=== PATIENT | female | born 1940 | race Caucasian/White ===

== ENCOUNTER 2018-09-10 10:02 | Inpatient (IN) | payer MEDICARE, MEDICAID ==
[2018-09-10 10:07] VITALS: BMI 24.8
[2018-09-10 13:10] LABS: SQUAMOUS EPITHIAL 1 /hpf (0-5); URINE BACTERIA RARE (<OCC); URINE BILIRUBIN NEGATIVE (NEGATIVE); URINE BLOOD NEGATIVE (NEGATIVE); URINE CLARITY Clear (Clear); URINE COLOR Yellow (YELLOW); URINE GLUCOSE (UA) 1+ mg/dL (Normal); URINE LEUKOCYTE ESTERASE TRACE Leu/uL (Negative); URINE PROTEIN 2+ mg/dL (NEGATIVE); URINE UROBILINOGEN NORMAL mg/dL (0.2-1.0)
--- NOTE | 2018-09-10 13:33 | C.PDOC ---
History Of Present Illness 78 years old female with PMHx of ESRD (on dialysis MWF) presents to ED for complaints of abdominal cramping associated with watery diarrhea that began 3 days ago. Patient reports diarrhea is associated occasionally with dark blood s treaks and reports some mucus. Denies chest pain, shortness of breath, vomiting, cough, or fever. Patient also states she did not feel well today so she did not go to dialysis. PMD: * Josué Sweet Investment Banker: * Dr. Lafleur Time Seen by Provider: 09/10/18 10:29 Chief Complaint (Nursing): GI Problem History Per: Patient History/Exam Limitations: no limitations Onset/Duration Of Symptoms: Days Current Symptoms Are (Timing): Still Present Radiation Of Pain To:: None Quality Of Discomfort: Cramping Associated Symptoms: Diarrhea. denies: Fever, Chills, Nausea Exacerbating Factors: None Alleviating Factors: None Last Bowel Movement: Today Recent travel outside of the [place]: No Past Medical History Reviewed: Historical Data, Nursing Documentation, Vital Signs Vital Signs: Last Vital Signs Temp 97.8 F 09/10/18 10:17 Pulse 83 09/10/18 10:17 Resp 17 09/10/18 10:17 BP 189/81 H 09/10/18 10:17 Pulse Ox 97 09/10/18 10:17 - Medical History PMH: Anemia, Arthritis (JOINTS HURT), HTN, Hypothyroidism, Chronic Kidney Disease Surgical History: Endoscopy - [facility] Procedures BYPASS LEFT RADIAL ARTERY TO LOWER ARM VEIN, OPEN APPROACH (07/22/15) CATARAC PHACOEMULS/ASPIR (02/22/05) FLUOROSCOPY OF SUP VENA CAVA USING L OSM CONTRAST, GUIDANCE (07/22/15) INSERT INFUSION DEV IN R INT JUGULAR VEIN, PERC (07/22/15) INSERT LENS AT CATAR EXT (02/22/05) INSERTION OF INFUSION DEV INTO SUP VENA CAVA, PERC APPROACH (07/22/15) PERFORMANCE OF URINARY FILTRATION, MULTIPLE (07/22/15) PERFORMANCE OF URINARY FILTRATION, SINGLE (10/11/15) TRANSFUSE NONAUT RED BLOOD CELLS IN PERIPH VEIN, PERC (07/22/15) Family History: States: Unknown Family Hx - Social History Hx Tobacco Use: No Hx Alcohol Use: No Hx Substance Use: No - Immunization History Hx Tetanus Toxoid Vaccination: No Hx Influenza Vaccination: Yes Hx Pneumococcal Vaccination: Yes Review Of Systems Constitutional: Negative for: Fever, Chills Gastrointestinal: Positive for: Abdominal Pain, Diarrhea. Negative for: Nausea, Vomiting Skin: Negative for: Rash Neurological: Negative for: Weakness, Numbness Physical Exam - Physical Exam Appears: Non-toxic, Other (Uncomfortable ) Skin: Normal Color, Warm, Dry, No Rash Head: Atraumatic, Normacephalic Eye(s): bilateral: Normal Inspection, PERRL, EOMI Oral Mucosa: Moist Neck: Normal ROM, Supple Chest: Symmetrical, No Tenderness Cardiovascular: Rhythm Regular, No Murmur Respiratory: Normal Breath Sounds, No Rales, No Rhonchi, No Wheezing Gastrointestinal/Abdominal: Soft, Tenderness (Left periumbillical and lower quadrant ), No Guarding, No Rebound, Other (Negative eldridge's and mcburny's. ) Back: Normal Inspection, No CVA Tenderness Extremity: Normal ROM Extremity: Bilateral: Atraumatic, Normal Color And Temperature, Normal ROM Pulses: Left Radial: Normal, Right Radial: Normal Neurological/Psych: Oriented x3, Normal Speech Gait: Steady ED Course And Treatment - Laboratory Results Result Diagrams: 09/10/18 15:01 09/10/18 15:01 O2 Sat by Pulse Oximetry: 97 (RA) Pulse Ox Interpretation: Normal - CT Scan/US CT ABD/PELVIS Other Rad Studies (CT/US): Read By Radiologist, Radiology Report Reviewed CT/US Interpretation: Accession No. : Patient Name / ID : RA ESTEVEZ O / [id number]. Exam Date : 09/10/2018 12:36:57 ( Approved ). Study Comment : Sex / Age : F / [id number]. Creator : Beatriz Mandujano. Dictator : Cal Wray MD. Backup Operator : Ticket Collector : Cal Wray MD. Approver2 : Report Date : 09/10/2018 12:49:30. My Comment : . Date of service: 2018-09-10 12:36:57. PROCEDURE: CT Abdomen and Pelvis without intravenous contrast. HISTORY: Left-sided abdominal pain. COMPARISON: None. TECHNIQUE: Without contrast.. Contrast dose: 0. Radiation dose: Total exam DLP = 218.06 mGy-cm. This CT exam was performed using one or more of the following dose reduction techniques: Automated exposure control, adjustment of the mA and/or kV according to patient size, and/or use of iterative reconstruction technique. FINDINGS: LOWER THORAX: No infiltrate. Pleural thickening versus subsegmental atelectasis in left lower lobe adjacent to left heart border. Mild cardiomegaly. Coronary arterial calcification. Elevated right hemidiaphragm. Differential diagnosis would include eventration of the diaphragm, hernia, diaphragmatic paralysis. LIVER: Unremarkable. No gross lesion or ductal dilatation. GALLBLADDER AND BILE DUCTS: Gallbladder is s ignificant for mild stranding of the pericholecystic fat. No mani pericholecystic fluid. No calcified gallstones. If clinically warranted consider further evaluation with ultrasound examination. PANCREAS: Unremarkable. No gross lesion or ductal dilatation. SPLEEN: Unremarkable. ADRENALS: Unre markable. No mass. KIDNEYS AND URETERS: Bilateral multiple small rounded low- attenuation masses likely cysts. All are low in attenuation and likely represent cysts. No renal calculus. No hydronephrosis. VASCULATURE: Unremarkable. No aortic aneurysm. Atherosclerotic calcification of the aorta and iliac vessels. BOWEL: Sigmoid diverticulosis. Mural thickening of the sigmoid colon most likely due to chronic muscularis hypertrophy. No evidence of diverticulitis. No other abnormal bowel loops no bowel obstruction. APPENDIX: Unremarkable. Normal appendix. PERITONEUM: Unremarkable. No free fluid. No free air. LYMPH NODES: Unremarkable. No enlarged lymph nodes. BLADDER: Decompressed. REPRODUCTIVE: Normal postmenopausal uterus. BONES: No acute fracture. OTHER FINDINGS: None. IMPRESSION: Mild stranding of the pericholecystic fat common nonspecific. Consider further evaluation with ultrasound examination. Sigmoid diverticulosis without evidence of diverticulitis. Multiple bilateral renal cysts no bowel obstruction. Incidentally noted elevated right hemidiaphragm. See above. No other significant abnormality Progress Note: Administered Insulin and IV fluids. Ordered EKG, blood work, and urinalysis. Disposition - Disposition Forms: Diagnose.me (Khmer) - Scribe Statement The provider has reviewed the documentation as recorded by the Giovanny Cmap All medical record entries made by the Giovanny were at my direction and perso mike dictated by me. I have reviewed the chart and agree that the record accurately reflects my personal performance of the history, physical exam, medical decision making, and the department course for this patient. I have also personally directed, reviewed, and agree with the discharge instructions and disposition.
[2018-09-10 15:15] LABS: BASO % 0.2 % (0.0-2.0); EOS # 0.3 K/uL (0.0-0.7); EOS % 3.4 % (0.0-4.0); HEMOGLOBIN 13.1 g/dL (11.0-16.0); LYMPH # 0.7 K/uL (1.0-4.3); LYMPH % 9.1 % (20.0-40.0); MEAN CORPUSCULAR HEMOGLOBIN 29.9 pg (27.0-31.0); MEAN CORPUSCULAR HGB CONC 33.2 g/dL (33.0-37.0); MEAN PLATELET VOLUME 7.1 fL (7.2-11.7); MONO # 0.5 K/uL (0.0-0.8); MONO % 6.6 % (0.0-10.0); NEUT # 6.1 K/uL (1.8-7.0); NEUT % 80.7 % (50.0-75.0); PLATELET COUNT 185 K/uL (130-400); RBC 4.36 Mil/uL (3.80-5.20); RED CELL DISTRIBUTION WIDTH 17.9 % (11.5-14.5); WHITE BLOOD COUNT 7.5 K/uL (4.8-10.8)
[2018-09-10 15:20] LABS: ALB/GLOB RATIO 1.5 (1.0-2.1); ALBUMIN 4.8 g/dL (3.5-5.0); CALCIUM 8.8 mg/dl (8.6-10.4)
[2018-09-10] MEDS ORDERED: Calcium Gluconate 4.65 MEQ in Dextrose 5% In Water 100 ML IV ONE ×2 (15:31→17:00)
[2018-09-10] MEDS ORDERED: (Novolin R) Insulin Human Regular 100 units/ml vial IVP ONE (15:32)
[2018-09-10] MEDS ORDERED: Dextrose 50% SYRINGE Inj (50 ml) IVP STA (15:33)
[2018-09-10] MEDS ORDERED: Sodium Bicarbonate (8.4%) 50 Meq Syringe IVP ONE (15:33)
[2018-09-10 15:37] LABS: EOSINOPHIL 2 % (0-4); LYMPHOCYTE 5 % (20-40); MONOCYTE 10 % (0-10); NEUTROPHIL 83 % (50-75); PLATELET ESTIMATE NORMAL (NORMAL); TOTAL CELLS COUNTED 100
[2018-09-10] MEDS ORDERED: (Novolin R) Insulin Human Regular 100 units/ml vial ONE (15:44)
[2018-09-10] MEDS ORDERED: Dextrose 50% SYRINGE Inj (50 ml) ONE (15:44)
[2018-09-10] MEDS ORDERED: Sodium Bicarbonate (8.4%) 50 Meq Syringe ONE (15:44)
--- NOTE | 2018-09-10 16:08 | CT ---
Date of service: 2018-09-10 12:36:57 PROCEDURE: CT Abdomen and Pelvis without intravenous contrast HISTORY: Left-sided abdominal pain COMPARISON: None. TECHNIQUE: Without contrast.. Contrast dose: 0 Radiation dose: Total exam DLP = 218.06 mGy-cm. This CT exam was performed using one or more of the following dose reduction techniques: Automated exposure control, adjustment of the mA and/or kV according to patient size, and/or use of iterative reconstruction technique. FINDINGS: LOWER THORAX: No infiltrate. Pleural thickening versus subsegmental atelectasis in left lower lobe adjacent to left heart border. Mild cardiomegaly. Coronary arterial calcification. Elevated right hemidiaphragm. Differential diagnosis would include eventration of the diaphragm, hernia, diaphragmatic paralysis. LIVER: Unremarkable. No gross lesion or ductal dilatation. GALLBLADDER AND BILE DUCTS: Gallbladder is significant for mild stranding of the pericholecystic fat. No mani pericholecystic fluid. No calcified gallstones. If clinically warranted consider further evaluation with ultrasound examination. PANCREAS: Unremarkable. No gross lesion or ductal dilatation. SPLEEN: Unremarkable. ADRENALS: Unremarkable. No mass. KIDNEYS AND URETERS: Bilateral multiple small rounded low-attenuation masses likely cysts. All are low in attenuation and likely represent cysts. No renal calculus. No hydronephrosis. VASCULATURE: Unremarkable. No aortic aneurysm. Atherosclerotic calcification of the aorta and iliac vessels. BOWEL: Sigmoid diverticulosis. Mural thickening of the sigmoid colon most likely due to chronic muscularis hypertrophy. No evidence of diverticulitis. No other abnormal bowel loops no bowel obstruction. APPENDIX: Unremarkable. Normal appendix. PERITONEUM: Unremarkable. No free fluid. No free air. LYMPH NODES: Unremarkable. No enlarged lymph nodes. BLADDER: Decompressed REPRODUCTIVE: Normal postmenopausal uterus. BONES: No acute fracture. OTHER FINDINGS: None. IMPRESSION: Mild stranding of the pericholecystic fat common nonspecific. Consider further evaluation with ultrasound examination. Sigmoid diverticulosis without evidence of diverticulitis. Multiple bilateral renal cysts no bowel obstruction. Incidentally noted elevated right hemidiaphragm. See above. No other significant abnormality
[2018-09-10] MEDS: Bismuth Subsalicylate 262 mg/15 ml Sus (240 ml) PO SCH (23:12)
[2018-09-11] MEDS: Levothyroxine 75 MCG TAB PO SCH (06:22)
[2018-09-11] MEDS ORDERED: LEVOTHYROXINE SODIUM 0.3 MG PO SCH (06:30)
[2018-09-11] MEDS ORDERED: Paricalcitol 2 mcg/ml Inj IV SCH (10:00)
[2018-09-11] MEDS: Bismuth Subsalicylate 262 mg/15 ml Sus (240 ml) PO SCH (10:42)
[2018-09-11] MEDS: Bismuth Subsalicylate 262 mg Chew Tab PO SCH ×3 (14:26→21:55)
[2018-09-11 15:22] LABS: ALB/GLOB RATIO 1.4 (1.0-2.1); ALBUMIN 4.2 g/dL (3.5-5.0); CALCIUM 8.6 mg/dl (8.6-10.4)
--- NOTE | 2018-09-11 17:55 | CP.PCM.HP ---
History of Present Illness - History of Present Illness History of Present Illness: CC: abdominal pain HPI: 78 y/o female h/o renal failure c/o abdominal pain. on and off, moderate in intensity . Also c/o diarrhea . No fever. NO SOB> No chestpain. Present on Admission - Present on Admission Any Indicators Present on Admission: Yes History of DVT/PE: No History of Uncontrolled Diabetes: No Urinary Catheter: No Decubitus Ulcer Present: No Review of Systems - Review of Systems All systems: reviewed and no additional remarkable complaints except (fatigue, appetite good, no fever, no constipation) Past Patient History - Infectious Disease Hx of Infectious Diseases: None - Tetanus Immunizations Tetanus Immunization: Unknown - Past Medical History & Family History Past Medical History?: Yes - Past Social History Smoking Status: Never Smoked Chewing Tobacco Use: No Cigar Use: No Alcohol: None Drugs: Denies Home Situation {Lives}: With Family Domestic Violence: Negative - CARDIAC Hx Cardiac Disorders: Yes Hx Hypertension: Yes - PULMONARY Hx Respiratory Disorders: No - NEUROLOGICAL Hx Neurological Disorder: No - HEENT Hx HEENT Problems: Yes (GLASSES READING) Hx Cataracts: Yes (s/p surgery 2004) - RENAL Hx Chronic Kidney Disease: Yes Date of Last Dialysis Treatment: 09/07/18 - ENDOCRINE/METABOLIC Hx Endocrine Disorders: Yes Hx Hypothyroidism: Yes - HEMATOLOGICAL/ONCOLOGICAL Hx Blood Disorders: Yes Hx Anemia: Yes - INTEGUMENTARY Hx Dermatological Problems: No - MUSCULOSKELETAL/RHEUMATOLOGICAL Hx Musculoskeletal Disorders: Yes Hx Arthritis: Yes (JOINTS HURT) Hx Falls: No - GASTROINTESTINAL Hx Gastrointestinal Disorders: No - GENITOURINARY/GYNECOLOGICAL Hx Genitourinary Disorders: No - PSYCHIATRIC Hx Substance Use: No - SURGICAL HISTORY Hx Surgeries: Yes Hx Cataract Extraction: Yes Hx Vascular Surgery: Yes (LEFT WRIST/ LEFT AXILLA FOR DIALYSIS/NON FUNCTIONING) Hx Vascular Access Device: Yes (LEFT UPPER ARM AV FISTULA) - ANESTHESIA Hx Anesthesia: Yes Hx Anesthesia Reactions: No Hx Malignant Hyperthermia: No Meds Allergies/Adverse Reactions: Allergies Allergy/AdvReac Type Severity Reaction Status Date / Time codeine Allergy Intermediate ITCHING Verified 09/10/18 10:33 Physical Exam - Constitutional Appears: Chronically Ill - Head Exam Head Exam: NORMAL INSPECTION - Eye Exam Eye Exam: Normal appearance Pupil Exam: NORMAL ACCOMODATION - ENT Exam ENT Exam: Normal Exam - Neck Exam Neck exam: Positive for: Normal Inspection - Respiratory Exam Respiratory Exam: NORMAL BREATHING PATTERN - Cardiovascular Exam Cardiovascular Exam: REGULAR RHYTHM - GI/Abdominal Exam GI & Abdominal Exam: Soft - Rectal Exam Rectal Exam: Deferred - Extremities Exam Extremities exam: Positive for: normal inspection Results - Vital Signs Recent Vital Signs: Last Vital Signs Temp 98.6 F 09/11/18 15:00 Pulse 70 09/11/18 15:00 Resp 20 09/11/18 15:00 BP 160/60 H 09/11/18 15:00 Pulse Ox 96 09/11/18 15:00 - Labs Result Diagrams: 09/12/18 11:53 09/12/18 11:53 Labs: Laboratory Results - last 24 hr 09/10/18 09/11/18 09/11/18 15:01 13:49 13:49 Sodium 128 L Potassium 6.1 H Chloride 88 L Carbon Dioxide 23 Anion Gap 23 H BUN 129 H* Creatinine 10.7 H* Est GFR ( Amer) 4 Est GFR (Non-Af Amer) 3 Random Glucose 125 H Calcium 8.6 Total Bilirubin 0.7 AST 32 ALT 26 Alkaline Phosphatase 72 Total Protein 7.1 Albumin 4.2 Globulin 2.9 Albumin/Globulin Ratio 1.4 Lipase 308 H C. difficile Ag & Toxin Negative Assessment & Plan (1) Abdominal pain Status: Acute (2) HTN (hypertension) Status: Chronic (3) ESRD (end stage renal disease) on dialysis Status: Chronic - Assessment and Plan (Free Text) Assessment: A?P: CT abdomen sigmoid diverticulosis, multiple renal cyst noted. Feels elida. Dialysis done . Start with regular diet
--- NOTE | 2018-09-11 18:16 | CP.PCM.CON ---
History of Present Illness - History of Present Illness History of Present Illness: full consult is dictated , seen in hd this evening#[id number] Past Patient History - Infectious Disease Hx of Infectious Diseases: None - Tetanus Immunizations Tetanus Immunization: Unknown - Past Medical History & Family History Past Medical History?: Yes - Past Social History Smoking Status: Never Smoked Chewing Tobacco Use: No Cigar Use: No Alcohol: None Drugs: Denies Home Situation {Lives}: With Family Domestic Violence: Negative - CARDIAC Hx Cardiac Disorders: Yes Hx Hypertension: Yes - PULMONARY Hx Respiratory Disorders: No - NEUROLOGICAL Hx Neurological Disorder: No - HEENT Hx HEENT Problems: Yes (GLASSES READING) Hx Cataracts: Yes (s/p surgery 2004) - RENAL Hx Chronic Kidney Disease: Yes Date of Last Dialysis Treatment: 09/07/18 - ENDOCRINE/METABOLIC Hx Endocrine Disorders: Yes Hx Hypothyroidism: Yes - HEMATOLOGICAL/ONCOLOGICAL Hx Blood Disorders: Yes Hx Anemia: Yes - INTEGUMENTARY Hx Dermatological Problems: No - MUSCULOSKELETAL/RHEUMATOLOGICAL Hx Musculoskeletal Disorders: Yes Hx Arthritis: Yes (JOINTS HURT) Hx Falls: No - GASTROINTESTINAL Hx Gastrointestinal Disorders: No - GENITOURINARY/GYNECOLOGICAL Hx Genitourinary Disorders: No - PSYCHIATRIC Hx Substance Use: No - SURGICAL HISTORY Hx Surgeries: Yes Hx Cataract Extraction: Yes Hx Vascular Surgery: Yes (LEFT WRIST/ LEFT AXILLA FOR DIALYSIS/NON FUNCTIONING) Hx Vascular Access Device: Yes (LEFT UPPER ARM AV FISTULA) - ANESTHESIA Hx Anesthesia: Yes Hx Anesthesia Reactions: No Hx Malignant Hyperthermia: No Meds Allergies/Adverse Reactions: Allergies Allergy/AdvReac Type Severity Reaction Status Date / Time codeine Allergy Intermediate ITCHING Verified 09/10/18 10:33 - Medications Medications: Current Medications Amlodipine Besylate (Norvasc) 10 mg PO DAILY [facility] Last Admin: 09/11/18 10:02 Dose: 10 mg Bismuth Subsalicylate (Pepto Bismol) 262 mg PO QID [facility] Last Admin: 09/11/18 18:02 Dose: Not Given Carvedilol (Coreg) 25 mg PO BID [facility] Last Admin: 09/11/18 18:02 Dose: Not Given Heparin Sodium (Porcine) (Heparin) 5,000 units SC Q12 [facility] Last Admin: 09/11/18 10:05 Dose: Not Given Levothyroxine Sodium (Synthroid) 75 mcg PO DAILY@0630 [facility] Last Admin: 09/11/18 06:22 Dose: 75 mcg Paricalcitol (Zemplar) 2 mcg IV TTS [place] Pneumococcal Polyvalent Vaccine (Pneumovax 23 Vaccine) 0.5 ml IM .ONCE ONE Stop: 09/12/18 10:03 Results - Vital Signs Recent Vital Signs: Last Vital Signs Temp 98.6 F 09/11/18 15:00 Pulse 70 09/11/18 15:00 Resp 20 09/11/18 15:00 BP 160/60 H 09/11/18 15:00 Pulse Ox 96 09/11/18 15:00 - Labs Result Diagrams: 09/10/18 15:01 09/11/18 13:49 Labs: Laboratory Results - last 24 hr 09/10/18 09/11/18 09/11/18 15:01 13:49 13:49 Sodium 128 L Potassium 6.1 H Chloride 88 L Carbon Dioxide 23 Anion Gap 23 H BUN 129 H* Creatinine 10.7 H* Est GFR ( Amer) 4 Est GFR (Non-Af Amer) 3 Random Glucose 125 H Calcium 8.6 Total Bilirubin 0.7 AST 32 ALT 26 Alkaline Phosphatase 72 Total Protein 7.1 Albumin 4.2 Globulin 2.9 Albumin/Globulin Ratio 1.4 Lipase 308 H C. difficile Ag & Toxin Negative
--- NOTE | 2018-09-12 04:26 | CON ---
DATE: 09/11/2018 RENAL CONSULTATION LOCATION: The patient is located in room 565, bed B. REQUESTED BY: Josué Barbosa MD REASON FOR CONSULTATION: End-stage renal disease, hyperkalemia, and for continuation of hemodialysis. HISTORY OF PRESENT ILLNESS: Mrs. Estrella is a 78-year-old elderly very pleasant German female with a past medical history significant for longstanding hypertension; end-stage renal disease; on hemodialysis three times a week on Saturday, Saturday and Saturday who was admitted with chief complaints of diarrhea for about three days associated with some mucus and streaks of blood and also abdominal discomfort. The patient also complains of cough associated with yellow sputum for few days. Denies any chest pain or palpitation. Denies any fever or cough. Denies any nausea or vomiting. Denies any dysuria or frequency. Denies any swelling of the legs. Denies any recent weight loss or weight gain. PAST MEDICAL HISTORY: Significant for longstanding hypertension; end-stage renal disease, on hemodialysis three times a week. PAST SURGICAL HISTORY: Status post left upper extremity AV fistula. SOCIAL HISTORY: No smoking. No alcohol. No drugs. PERSONAL HISTORY: She is and she has four children. FAMILY HISTORY: Not significant. MEDICATIONS: Her current medications include as follows: Amlodipine 10 mg daily, Nephro-Ruba, Renvela, pravastatin, metoprolol, levothyroxine, and esomeprazole. Her current medications in the hospital include Coreg, subcu heparin, amlodipine, Pepto-Bismol, levothyroxine, and Zemplar. REVIEW OF THE SYSTEMS: Significant for diarrhea and cough associated with yellow sputum. All other review of systems reviewed and negative. PHYSICAL EXAMINATION: VITAL SIGNS: As follows: Blood pressure 163/75, pulse 70, respirations about 16, temperature 96.5, and saturation 96%. Height 5 feet. Weight is 110 pounds. GENERAL: Mrs. Estrella is a 78-year-old very pleasant elderly German female, moderately built, moderately nourished, not in acute distress. HEENT: Pupils normal and reactive to light and accommodation. Conjunctivae pink. Sclerae anicteric. Tongue is moist. Trachea is midline. LUNGS: Symmetric on both sides. Bilateral breath sounds present. Clear to auscultation. CARDIOVASCULAR SYSTEM: [place] at the fifth intercostal space, midclavicular line. S1 and S2 audible. No murmur or gallop. ABDOMEN: Normal in appearance, soft, and tympanitic. No guarding. No rigidity. No hepatosplenomegaly. CENTRAL NERVOUS SYSTEM: The patient is alert, awake, and oriented x3. Nonfocal neuro examination. Cranial nerves II through XII grossly intact. Sensory and motor system is within normal limits. EXTREMITIES: No cyanosis, no clubbing, no edema. LABORATORY DATA: Include as follows: As of 09/10/2018: WBC 7.5, hemoglobin 13.1, hematocrit is 39.3, and platelet 185. Sodium 130, potassium 5.7, chloride 89, CO2 of 23, BUN 113, creatinine 9.6, glucose is 147, calcium 8.8. Total bili 0.7, AST 41, ALT 26, alkaline phosphatase 87, total protein 8.1, albumin is 4.8, and lipase is 308. Urinalysis: Yellow, clear, pH of 8, specific gravity 1.009, protein 2+, glucose 1+, ketone negative, blood negative, nitrite negative, bilirubin negative, urobilinogen normal, leukocyte esterase trace, wbc's 4, rbc less than 1. Stool for C. difficile toxin is negative. Hepatitis B surface antigen is negative. As of 09/11/2018, other laboratory data: Sodium 128, potassium 6.1, chloride 88, CO2 of 23, BUN 129, creatinine 10.7, glucose 125, and calcium 8.6. Total bili 0.7, total protein 7.1, albumin is 4.2. ASSESSMENT AND PLAN: In summary, Mrs. Estrella is a [id number] [place] female with a history of hypertension and end-stage renal disease who was admitted with cough associated with some yellow sputum, abdominal discomfort and diarrhea for two to three days associated with some mucus and streaks of blood. Status post CT scan of the abdomen and pelvis consistent with mild stranding of pericholecystic fat, nonspecific. Considered further evaluation with ultrasound examination, sigmoid diverticulosis without evidence of diverticulitis, multiple bilateral renal cysts. No bowel obstruction. Incidentally noted elevated right hemidiaphragm. No other significant abnormality. 1. End-stage renal disease. Continue hemodialysis three times a week. 2. Hyperkalemia. 3. Hypertension. 4. Diarrhea, rule out food poisoning, rule out bacterial infection, rule out viral infection. The patient is being dialyzed this evening. Ultrafiltration goal is about 2 liters. The patient is being dialyzed with 2K+ bath Repeat basic metabolic panel in a.m. Continue her current medications. Check stool for ova and parasites and stool for white blood cells. Check sputum for Gram's stain, culture and sensitivity. We will follow with you. Thank you for allowing me to participate in your patient's care. Cecy Lafleur MD [facility]
[2018-09-12] MEDS: Levothyroxine 75 MCG TAB PO SCH (06:27)
--- NOTE | 2018-09-12 07:44 | CP.PCM.PN ---
Subjective - Date & Time of Evaluation Date of Evaluation: 09/12/18 Time of Evaluation: 07:40 - Subjective Subjective: Pt hungry; no more diarrhea and HD yesterday No CP, no SOB, no cough, no n/v Objective - Vital Signs/Intake and Output Vital Signs (last 24 hours): Temp Pulse Resp BP Pulse Ox 98.2 F 93 H 20 133/60 94 L 09/11/18 23:00 09/12/18 00:00 09/11/18 23:00 09/11/18 23:00 09/11/18 23:00 Intake and Output: 09/12/18 09/12/18 06:59 18:59 Intake Total 120 Balance 120 - Medications Medications: Current Medications Amlodipine Besylate (Norvasc) 10 mg PO DAILY [facility] Last Admin: 09/11/18 10:02 Dose: 10 mg Bismuth Subsalicylate (Pepto Bismol) 262 mg PO QID [facility] Last Admin: 09/11/18 21:55 Dose: 262 mg Carvedilol (Coreg) 25 mg PO BID [facility] Last Admin: 09/11/18 18:02 Dose: Not Given Heparin Sodium (Porcine) (Heparin) 5,000 units SC Q12 [facility] Last Admin: 09/11/18 21:55 Dose: 5,000 units Levothyroxine Sodium (Synthroid) 75 mcg PO DAILY@0630 [facility] Last Admin: 09/12/18 06:27 Dose: 75 mcg Paricalcitol (Zemplar) 2 mcg IV TTS [facility] Last Admin: 09/11/18 20:33 Dose: 2 mcg Pneumococcal Polyvalent Vaccine (Pneumovax 23 Vaccine) 0.5 ml IM .ONCE ONE Stop: 09/12/18 10:03 - Labs Labs: 09/10/18 15:01 09/11/18 13:49 - Constitutional Appears: No Acute Distress - Eye Exam Eye Exam: Normal appearance - ENT Exam ENT Exam: Mucous Membranes Moist - Neck Exam Neck Exam: Full ROM. absent: Normal Inspection - Respiratory Exam Respiratory Exam: Clear to Ausculation Bilateral. absent: Rales, Rhonchi, Wheezes - Cardiovascular Exam Cardiovascular Exam: REGULAR RHYTHM, +S1, +S2, Murmur. absent: Gallop, JVD - GI/Abdominal Exam GI & Abdominal Exam: Soft, Normal Bowel Sounds. absent: Guarding, Tenderness - Extremities Exam Extremities Exam: Full ROM, Normal Capillary Refill. absent: Calf Tenderness, Joint Swelling, Pedal Edema - Skin Skin Exam: Dry. absent: Erythema, Petechiae, Rash Assessment and Plan - Assessment and Plan (Free Text) Assessment: Diarrhea - viral; ESRD HTN, hypothyroidism For discharge today Cont OPD meds
[2018-09-12 07:47] VITALS: O2SAT 95
[2018-09-12] MEDS ORDERED: Pneumococcal 23-Valent Vaccine IM ONE (10:02)
[2018-09-12] MEDS: Bismuth Subsalicylate 262 mg Chew Tab PO SCH ×3 (10:50→17:51)
[2018-09-12 12:06] LABS: BASO % 0.5 % (0.0-2.0); EOS # 0.1 K/uL (0.0-0.7); EOS % 1.8 % (0.0-4.0); HEMOGLOBIN 12.2 g/dL (11.0-16.0); LYMPH # 0.6 K/uL (1.0-4.3); LYMPH % 8.3 % (20.0-40.0); MEAN CORPUSCULAR HEMOGLOBIN 30.6 pg (27.0-31.0); MEAN CORPUSCULAR HGB CONC 33.9 g/dL (33.0-37.0); MEAN PLATELET VOLUME 7.1 fL (7.2-11.7); MONO # 0.5 K/uL (0.0-0.8); MONO % 7.4 % (0.0-10.0); NEUT # 5.5 K/uL (1.8-7.0); PLATELET COUNT 169 K/uL (130-400); RBC 3.99 Mil/uL (3.80-5.20); RED CELL DISTRIBUTION WIDTH 17.4 % (11.5-14.5); WHITE BLOOD COUNT 6.7 K/uL (4.8-10.8)
[2018-09-12 12:27] LABS: ALB/GLOB RATIO 1.4 (1.0-2.1); ALBUMIN 4.1 g/dL (3.5-5.0); CALCIUM 8.2 mg/dl (8.6-10.4)
[2018-09-12 12:46] LABS: EOSINOPHIL 2 % (0-4); LYMPHOCYTE 6 % (20-40); PLATELET ESTIMATE NORMAL (NORMAL); TOTAL CELLS COUNTED 100
[2018-09-12 12:47] LABS: MONOCYTE 2 % (0-10); NEUTROPHIL 90 % (50-75)
[2018-09-12] MEDS ORDERED: Paricalcitol 2 mcg/ml Inj IV ONE (15:00)
[2018-09-12] MEDS ORDERED: Paricalcitol 2 mcg/ml Inj IV SCH (16:45)
[2018-09-12 17:32] VITALS: PULSE 86; RESP 18; TEMP 97.7
[2018-09-12 18:18] VITALS: BP 166/77
--- NOTE | 2018-09-12 18:38 | CP.PCM.PN ---
Subjective - Date & Time of Evaluation Date of Evaluation: 09/12/18 Time of Evaluation: 17:05 - Subjective Subjective: pt is seen and examined, follow up consult is dictated#[id number] hd this after noon to keep her out pt hd schedule MWF stable hd tx, uf goal is a 1lit Objective - Vital Signs/Intake and Output Vital Signs (last 24 hours): Temp Pulse Resp BP Pulse Ox 97.7 F 86 18 152/62 H 95 09/12/18 17:31 09/12/18 17:31 09/12/18 17:31 09/12/18 17:51 09/12/18 17:31 Intake and Output: 09/12/18 09/12/18 06:59 18:59 Intake Total 120 Balance 120 - Labs Labs: 09/12/18 11:53 09/12/18 11:53
--- NOTE | 2018-09-13 03:38 | PN ---
DATE: 09/12/2018 FOLLOWUP RENAL CONSULTATION LOCATION: The patient is located in room 565, bed B. REQUESTED BY: Josué Barbosa MD REASON FOR FOLLOWUP: End-stage renal disease, continuation of the hemodialysis. HISTORY OF PRESENT ILLNESS: Mrs. Estrella is a 78-year-old elderly very pleasant [place] female with a past medical history significant for longstanding hypertension; end-stage renal disease, on hemodialysis three times a week Saturday, Saturday, and Saturday who was admitted with chief complaints of cough and also abdominal pain associated with watery diarrhea. The patient was also found to have elevated potassium level and underwent hemodialysis yesterday. The patient is feeling much better but denies any complaints today. PHYSICAL EXAMINATIONS: VITAL SIGNS: Blood pressure 152/62, pulse 86, respirations 18, temperature 97.7, saturation 95%. Height 5 feet, weight is 110 pounds. GENERAL: Mrs. Estrella is a 78-year-old elderly female, moderately built, moderately nourished, not in acute distress. HEENT: Pupils are normal and reactive to light and accommodation. Conjunctivae pink. Sclerae anicteric. Tongue is moist. Trachea is midline. LUNGS: Symmetric on both sides. Bilateral breath sounds present. Clear to auscultation. CARDIOVASCULAR SYSTEM: [place] at the fifth intercostal space midclavicular line. S1, S2 audible. No murmur or gallop. ABDOMEN: Normal in appearance. Soft, tympanitic. No guarding. No rigidity. No hepatosplenomegaly. CENTRAL NERVOUS SYSTEM: The patient is alert, awake, and oriented x3. Nonfocal neuro examination. Cranial nerves II through XII grossly intact. Sensory and motor system is within normal limits. EXTREMITIES: No cyanosis, no clubbing, no edema. CURRENT MEDICATIONS: Include amlodipine, Nephro-Ruba, Renvela, pravastatin, metoprolol, levothyroxine, and esomeprazole. LABORATORY DATA: Include as follows: As of 09/12/2018, WBC 6.7, hemoglobin 12.2, hematocrit is 35.9, platelet 169. Sodium 131, potassium 4.2, chloride 91, CO2 of 27, BUN 49, creatinine 6.6, glucose 163, calcium 8.2. Total bili 0.5, AST 31, ALT 24, alkaline phosphatase 73, total protein 7, albumin is 4.1. C. diff toxin is negative and hepatitis B surface antigen negative. IMPRESSION: In summary, Mrs. Camilo is a 78-year-old elderly [place] female with hypertension, hypothyroidism, hyperlipidemia, end-stage renal disease who was admitted with abdominal pain and diarrhea and cough with hyperkalemia. 1. End-stage renal disease. Continue hemodialysis three times a week, Saturday, Saturday, and Saturday. The patient underwent hemodialysis yesterday as she missed the dialysis on Saturday. The patient is scheduled for another dialysis this afternoon to keep her outpatient hemodialysis schedule Saturday, Saturday, and Saturday, had ultrafiltration about 700 mL. The patient tolerated hemodialysis without any complications. 2. Hypertension. Continue her current medication Norvasc and metoprolol. 3. Hypothyroidism. Continue Synthroid 75 mcg daily. Continue Renvela 800 mg p.o. t.i.d. and also Nephrocaps. The patient will go back to her regular schedule on Saturday at outpatient dialysis unit. Thank you for allowing me to participate in your patient's care. Cecy Lafleur MD
--- NOTE | 2018-09-15 14:41 | CARD ---
APPROVED REPORT Date of service: 09/10/2018 EKG Measurement Heart [id number] <Conclusion> Normal sinus rhythm Possible Left atrial enlargement Left ventricular hypertrophy Anteroseptal infarct, age undetermined Abnormal ECG
== END 2018-09-12 18:30 | disposition home or self-care (01) | DRG 391 ==
LOC: C.ER 10:02 → C.9E 15:39 → C.5S 16:53
PROVIDERS: ADMIT Internal Medicine; ATTEND Internal Medicine
PROC: 5A1D70Z Performance of Urinary Filtration, Intermittent, Less than 6 Hours Per Day (ICD-10-PCS; principal; 2018-09-11)
PROC: 5A1D70Z Performance of Urinary Filtration, Intermittent, Less than 6 Hours Per Day (ICD-10-PCS; 2018-09-12)
DX: K57.30 Diverticulosis of large intestine without perforation or abscess without bleeding (principal); N18.6 End stage renal disease; I12.0 Hypertensive chronic kidney disease with stage 5 chronic kidney disease or end stage renal disease; N28.1 Cyst of kidney, acquired; E87.5 Hyperkalemia; E03.9 Hypothyroidism, unspecified; E78.5 Hyperlipidemia, unspecified; Z99.2 Dependence on renal dialysis; R19.7 Diarrhea, unspecified